=== PATIENT | male | born 1970 | race Caucasian/White ===

== ENCOUNTER → 2020-07-08 00:47 | Outpatient (CLI) | payer OTHER, SELFPAY ==
[2020-07-08 19:47] LABS: SARS-CoV-2 RNA PCR Negative
== END ==
PROVIDERS: Internal Medicine Gastroenterology; PCP Family Medicine Adolescent Medicine; Visit Provider Internal Medicine Gastroenterology
DX: Z01.812 Encounter for preprocedural laboratory examination (principal); Z20.822 Contact with and (suspected) exposure to COVID-19
CPT/HCPCS: C9803; U0003; U0005

== ENCOUNTER 2020-07-12 01:57 | Day surgery (SDC) | payer OTHER, SELFPAY ==
[2020-05-31 14:10] VITALS: BMI 25.7
[2020-06-30 14:08] VITALS: BMI 26.0
--- NOTE | 2020-06-30 14:14 | PC.NURSE ---
PT STATES NO UPDATES TO MEDICAL HISTORY SINCE UPDATED LAST 30 DAYS AGO.
[2020-07-12 06:29] VITALS: BP 106/69; PULSE 55; RESP 18; TEMP 36.5; O2SAT 98; BMI 26.3
[2020-07-12] MEDS: LACTATED RINGERS 1,000 ML 150 ML IV CONT (06:32)
--- NOTE | 2020-07-12 07:09 | WPDANESEPPF ---
Anes - Initial Pre Proc Eval Procedure: Operation Date: 07/12/20 07:30 Proposed Procedures p Screening Colonoscopy - Franck Rivera MD Date/Time: 07/12/20 07:09 Surgeon: Franck Rivera MD Pre Op Diagnosis: Neoplasm Screening Patient Data Age: 50 Gender: M Height: 5 ft 9 in Weight: 80.9 kg Last Vital Signs Temp 97.7 F 07/12/20 06:29 Pulse 55 L 07/12/20 06:29 Resp 18 07/12/20 06:29 BP 106/69 07/12/20 06:29 Pulse Ox 98 07/12/20 06:29 Allergies Allergy/AdvReac Type Severity Reaction Status Date / Time No Known Drug Allergies Allergy Other Verified 07/12/20 06:28 Home Medications Medication Instructions Recorded Confirmed Type No Home Medications 07/12/20 07/12/20 History Patient hx anesthesia problems: none Family hx anesthesia problems: none [facility] Past Medical History Medical History (Updated 07/12/20 @ 07:09 by Salvador Mohamud MD) Healthy adult Social History Social History Smoking status: Never smoker Alcohol intake: never Alcohol use details: once a week Substance use: never Substance use type: does not use Living arrangements: alone Gender identity (if verbalized by the patient): Male Spiritual care concerns: No Anes - Eval Final PreProcedure Day of Procedure 07/12/20 07:09 Patient weight: normal Heart: regular rate and rhythm Lungs: clear to auscultation Airway: Mallampati scale class II Neurological: alert and oriented Last oral intake: >/= 8 hours ASA classification: I Emergent: no Anesthetic plan: proceed Anesthesia type and monitoring: general GIVS and standard monitoring Informed Consent: The patient's anesthetic plan and its attendant risks and benefits were discussed with the patient/family/POA. Questions were solicited and answers provided to the satisfaction of the patient/family/POA.
--- NOTE | 2020-07-12 07:14 | PM.HPGS ---
History of Present Illness History of Present Illness Consent: Risks, benefits, and alternatives have been discussed and questions answered. Patient agrees to proceed with procedure. Chief complaint: Neoplasm Screening Narrative: Cristian Aburto is a 50 year old male referred for colon cancer screening Review of Systems Review of Systems: All systems reviewed & are unremarkable except as noted in HPI and below PMFSH Past Medical History Medical History (Updated 07/12/20 @ 07:14 by Franck Rivera MD) Healthy adult Social History Social History Smoking status: Never smoker Alcohol intake: never Alcohol use details: once a week Substance use: never Substance use type: does not use Living arrangements: alone Gender identity (if verbalized by the patient): Male Spiritual care concerns: No Meds Home Medications and Allergies Home Medications Medication Instructions Recorded Confirmed Type No Home Medications 07/12/20 07/12/20 History Allergies Allergy/AdvReac Type Severity Reaction Status Date / Time No Known Drug Allergies Allergy Other Verified 07/12/20 06:28 Vital Signs Vital Signs - 24 hr 07/12/20 06:29 Temperature 36.5 C Pulse Rate 55 L Respiratory Rate 18 Blood Pressure 106/69 Pulse Oximetry 98 Exam Resp: Auscultation: clear to auscultation bilaterally Cardio: Rate: regular rate Rhythm: regular rhythm GI: GI Palp: Yes Soft to palpation and No Tenderness to palpation present (GI) Assessment and Plan Assessment and plan (1) Colon cancer screening: Code(s): Z12.11 - Encounter for screening for malignant neoplasm of colon Status: Acute Assessment and Plan: Colonoscopy with possible biopsy or polypectomy or cautery or injection of substances.
[2020-07-12] MEDS: SIMETHICONE ORAL SUSPENSION 20 MG/0.3 ML 30 ML BOTTLE 0.6 ML IRRIGATION (07:35)
[2020-07-12 07:45] VITALS: BP 96/51; PULSE 58; RESP 17; O2SAT 98
[2020-07-12 07:55] VITALS: BP 91/57; PULSE 54; RESP 20; O2SAT 97
[2020-07-12 08:05] VITALS: BP 106/71; PULSE 57; RESP 22; O2SAT 99
== END 2020-07-12 08:16 | disposition home or self-care (01) ==
PROVIDERS: PCP Family Medicine Adolescent Medicine; Visit Provider Internal Medicine Gastroenterology
PROC: 0DJD8ZZ Inspection of Lower Intestinal Tract, Via Natural or Artificial Opening Endoscopic (ICD-10-PCS; CPT 45378; principal; 2020-07-12 07:30)
DX: Z12.11 Encounter for screening for malignant neoplasm of colon (principal); K57.30 Diverticulosis of large intestine without perforation or abscess without bleeding
CPT/HCPCS: 45378; C9803; J2001; J2704; J7120; U0003; U0005

== ENCOUNTER 2024-12-20 10:00 | Outpatient (RCR) | payer OTHER, SELFPAY | END 2024-12-20 11:01 | disposition home or self-care (01) | LOC: ANHCPREHAB 10:00 | PROVIDERS: PCP Family Medicine Adolescent Medicine | DX: Z95.2 Presence of prosthetic heart valve (principal) | CPT/HCPCS: 93798 ==